=== PATIENT | female | born 1950 | race Caucasian/White ===

== ENCOUNTER 2025-06-02 05:46 | Emergency (ER) | payer MEDICARE ==
[~2025-06-02] VITALS: Ht 170.2 cm; Wt 93.0 kg
[2025-06-02 05:46] VITALS: TEMP 98.8
[~2025-06-02 05:46] MED LIST: AZITHROMYCIN250 MG PO; PREDNISONE20 MG PO; VENTOLIN HFA18 GM INH
[2025-06-02 06:06] LABS: BASOPHILS % 0.5 % (0.0-1.0); EOSINOPHILS % 1.3 % (0.0-6.0); LYMPHOCYTES % 16.9 % (18.0-39.1); MONOCYTES % 6.0 % (4.4-11.3); NEUTROPHILS % 75.0 % (38.7-80.0); RED CELL DISTRIBUTION WIDTH 13.4 % (11.7-14.4)
[2025-06-02] MEDS: ALBUTEROL SULF 0.083% NEB SOLN 3 ML NEB NEB STA (06:08)
[2025-06-02] MEDS: IPRATROPIUM BROMIDE 0.02% 2.5 ML NEB NEB ONE (06:09)
[2025-06-02] MEDS: METHYLPREDNISOLONE SOD SUCC 125 MG/2ML VIAL IV ONE (06:18)
[2025-06-02 06:26] LABS: CORONAVIRUS COVID-19 AG NEGATIVE (NEGATIVE)
[2025-06-02 06:32] LABS: EST GLOMERULAR FILTRATION RATE 68.0 ML/MIN (>=60)
[2025-06-02] MEDS: SODIUM CHLORIDE 0.9% 1000ML 1,000 ML IV STA (06:41)
[2025-06-02 08:00] VITALS: PULSE 110; RESP 18
[2025-06-02] MEDS ORDERED: PREDNISONE50 MG PO (08:52)
[2025-06-02 09:19] VITALS: BP 150/52; PULSE 94; RESP 18; O2SAT 100
== END 2025-06-02 09:14 | disposition home or self-care (01) ==
LOC: ER 05:51
DX: R06.00 Dyspnea, unspecified (principal); J45.909 Unspecified asthma, uncomplicated; I10 Essential (primary) hypertension
CPT/HCPCS: 36415; 71045; 80053; 83880; 84484; 85025; 87428; 93005; 99284; J2919; J7030